=== PATIENT | female | born 1965 | race Caucasian/White ===

== ENCOUNTER 2018-08-26 07:52 | Inpatient (IN) ==
--- NOTE | 2018-07-31 12:35 | PAT Medication Instructions ---
Medication Instructions Date of Service July 31, 2018 Home Medications Calcium Citrate 50 mg PO BID cyanocobalamin (vitamin B-12) 2,500 mcg SUBLINGUAL BID food supplemt, lactose-reduced 1 ea QAM levothyroxine 50 mcg PO QAM multivitamin [Multiple Vitamins] 1 tab PO BID pantoprazole 40 mg PO UD PRN sucralfate 1 g PO ACHS PRN DO NOT take the morning of surgery Calcium Citrate 50 mg PO BID cyanocobalamin (vitamin B-12) 2,500 mcg SUBLINGUAL BID food supplemt, lactose-reduced 1 ea QAM multivitamin [Multiple Vitamins] 1 tab PO BID sucralfate 1 g PO ACHS PRN Take morning of surgery With a small sip of water, OTHERWISE NOTHING TO EAT OR DRINK AFTER MIDNIGHT: levothyroxine 50 mcg PO QAM pantoprazole 40 mg PO UD PRN (if needed) Take evening before surgery Calcium Citrate 50 mg PO BID cyanocobalamin (vitamin B-12) 2,500 mcg SUBLINGUAL BID multivitamin [Multiple Vitamins] 1 tab PO BID pantoprazole 40 mg PO UD PRN (if needed) sucralfate 1 g PO ACHS PRN (if needed) Other Notes If you have any questions please call us at [phone] or [phone] or [phone] or [phone]
--- NOTE | 2018-07-31 13:52 | Anesthesiology Consultation ---
Date of Service July 31, 2018 Assessment & Plan (1) Encounter for pre-operative examination: CHECK TEST AM DOS. Chart Review Chart Review: Acceptable Risk for Surgery and Patient seen in Pre Admission Testing Teaching & Discussion Instructed NPO after midnight before surgery, except medications with 15 cc of water. Medication instructions provided according to the PAT guidelines. History Surgery Operation Date: 08/26/18 10:40 Proposed Procedures p Left Total Hip Replacement - Bethel Dennis MD Height/Weight Height: 5 ft 2 in Weight: 134.6 kg Allergies Allergy/AdvReac Type Severity Reaction Status Date / Time adhesive tape Allergy Unknown SCRATCHY Verified 07/25/18 11:20 amoxicillin Allergy Unknown Rash Verified 07/25/18 10:56 Medications Home Medications Medication Instructions Recorded Confirmed Last Taken Calcium Citrate 50 mg PO BID 07/25/18 07/25/18 Unknown cyanocobalamin (vitamin B-12) 2,500 mcg SUBLINGUAL BID 07/25/18 07/25/18 Unknown [Vitamin B-12] food supplemt, lactose-reduced 1 ea QAM 07/25/18 07/25/18 Unknown [Protein Nutritional Shake] levothyroxine 50 mcg PO QAM 07/25/18 07/25/18 07/25/18 multivitamin [Multiple Vitamins] 1 tab PO BID 07/25/18 07/25/18 Unknown pantoprazole 40 mg PO UD PRN 07/25/18 07/25/18 Unknown sucralfate 1 g PO ACHS PRN 07/25/18 07/25/18 Unknown Past Medical History Medical History Claustrophobia Dyspepsia ON PPI Hypothyroidism Morbid obesity Restless leg syndrome Past Family History Family History Father Family history of liver cancer Other Family history of colon cancer in father Past Surgical History Surgical History History of 2 sections History of carpal tunnel release of both wrists History of colonoscopy History of esophagogastroduodenoscopy (EGD) History of gastric bypass 01/2018 History of laparoscopic cholecystectomy Nausea and vomiting after administration of anesthetic agent Past Anesthesia History No Hx of Anesthesia Complications (mild PONV) and No Family Hx of Anesthesia Complications (Mother PONV) History of PONV Yes Motion Sickness Screening History of Motion Sickness: Yes Social History Smoking Status: Never smoker Do You Dip or Chew Tobacco: No Hx Alcohol Use: No Hx Substance Use: No substance use type: does not use Exercise / Class Metabolic Activity III < 4 Walking/Shop/Light housework (Denies CP or SOB with small FOS, but limits activity 2/2 hip pain) Review of Systems Pt denies any recent chest pain, shortness of breath, palpitations, cough, fever or URI. Physical Exam Vital Signs BP: 151/80 (pt states this is unusually high for her, she is very stressed out) P: 83bpm SPO2: 96% RA T: 98.4 F R: 16 Constitutional + morbidly obese ENMT Mouth: + dental restorations (2 crowns, bottom L rear, upper R rear); no chipped teeth and no loose teeth Thyromental Distance: > or= 3.5 Finger Breadths (4) Mallampati Class: II Permanent retainer behind upper front teeth. Neck normal visual inspection; neck extension not limited Respiratory normal respiratory effort Auscultation: lungs clear to auscultation bilaterally Cardiovascular Rate/Rhythm: regular rate and regular rhythm Heart Sounds: no murmur Vessels: no carotid bruit Extremities: no edema Testing Electrocardiogram Date: 01/07/18 Findings: + NSR @ (84) Low voltage QRS, "borderline" EKG. Chest X-Ray Date: 07/31/18 Findings: + NAD Echocardiogram Date: 10/23/17 EF: 55-60% There is no prior study for comparison. Technically difficult due to body habitus and poor acoustic windows. Normal EF. No regional wall motion abnormalities of the left ventricle. Grade 1 diastolic dysfunction. Trace mitral valve regurg. Trace tricuspid valve regurg. No pericardial effusion. Stress Test Date: 11/06/17 Type: DSE Normal stress echo without evidence of infarct or ischemia. No evidence of EKG changes to suggest ischemia. Patient reported nausea during stress test. Low risk study. Laboratory Results 07/31/18 14:05 07/31/18 14:05 Blood Type A Positive 07/31/18 14:05 Antibody Screen NEGATIVE 07/31/18 14:05 PT 10.2 Seconds (9.0-12.0) 07/31/18 14:05 INR 1.0 (0.9-1.1) 07/31/18 14:05 APTT 24.3 Seconds (21.0-31.0) 07/31/18 14:05
[2018-07-31 14:31] LABS: Basophils # (auto) 0.03 K/uL (0-0.2); Basophils % (auto) 0.3 %; Eosinophils # (auto) 0.16 K/uL (0-0.5); Eosinophils % (auto) 1.5 %; Hematocrit (blood only) 41.9 % (37-47); Hemoglobin 14.3 g/dL (12.0-16.0); Immature Granulocytes # (auto) 0.02 K/uL (0.00-0.02); Immature Granulocytes % (auto) 0.2 %; Lymphocytes % (auto) 19.1 %; Mean Corpuscular Hgb Conc 34.1 g/dL (32-36); Mean Corpuscular Volume 89.5 fL (80-100); Mean Platelet Volume 10.2 fL (7.4-10.4); Monocytes % (auto) 4.6 %; Neutrophils # (auto) 8.17 K/uL (1.4-6.5); Neutrophils % (auto) 74.3 %; Platelet Count 305 K/uL (130-400); RDW Coefficient of Variation 13.9 % (11.5-14.5); RDW Standard Deviation 45.6 fL (36.4-46.3); Red Blood Count 4.68 M/uL (4.2-5.4); White Blood Count 10.98 K/uL (4.8-10.8)
--- NOTE | 2018-07-31 14:35 | XRay Report ---
XR chest Pre-admission PA/Lat HISTORY: Preop. COMPARISON: None. FINDINGS: The lungs are clear. Cardiac silhouette is normal in size. No pleural effusions. No pneumot horax. IMPRESSION: No acute process. Electronically signed by: Narciso Ornelas M.D. 07/31/2018 2:33 PM
[2018-07-31 14:37] LABS: BUN Creatinine Ratio 22.4 (10-20); Calcium 9.3 mg/dl (8.5-10.1); Est GFR (African American) 105.3; Est GFR (Non-African American) 90.8; Potassium 4.3 mmol/L (3.5-5.1)
[2018-07-31 15:02] LABS: Partial Thromboplastin Ratio 0.9; Partial Thromboplastin Time 24.3 Seconds (21.0-31.0); Prothrombin Time 10.2 Seconds (9.0-12.0)
--- NOTE | 2018-08-23 12:21 | History and Physical Report ---
DATE OF ADMISSION: 08/26/2018 CHIEF COMPLAINT: Left hip pain, discomfort. HISTORY OF PRESENT ILLNESS: The patient is a 53-year-old female who is referred by my partner, Dr. Horne for surgical treatment of her left hip. She has a 6-month history of markedly increasing left hip pain and discomfort, been unresponsive to conservative care. She has been to various medicines which have not helped much at all. She had an intraarticular hip joint injection which took her pain away quite well for about a week and that is it. She got back to her normal activity level and the pain is back to where it was. She did have gastric bypass surgery about 6 months ago and lost 90 pounds and continues to lose weight slowly. She limps the more she walks. She has groin pain. She has nighttime discomfort. She would like to have her left hip fixed. PAST MEDICAL HISTORY: Significant for: 1. Hypothyroidism. 2. Obesity with BMI of 54, status post gastric bypass surgery on 01/27/2018. PREVIOUS SURGERIES: Include: 1. Cholecystectomy. 2. x2. 3. Carpal tunnel release bilaterally. 4. Vein stripping in 2010. 5. Bariatric surgery done at [facility] on 01/27/2018. ALLERGIES: AMOXICILLIN, WHICH CAUSES A RASH. CURRENT MEDICINES: Include: 1. Pantoprazole 40 mg a day. 2. Levothyroxine 50 mcg a day. 3. Vitamin B12. 4. Calcium citrate. 5. Multivitamin. 6. Carafate. SOCIAL HISTORY: A 53-year-old female. 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 Does not smoke. No significant alcohol intake. FAMILY HISTORY: Noncontributory. REVIEW OF HISTORY: Negative for diabetes, neurologic problems, vascular problems, bleeding disorders. No chest pain or shortness of breath. No history of DVT or PE. She has had this recent 90-pound weight loss. PHYSICAL EXAMINATION: GENERAL: Reveals a pleasant, middle-aged female. Looks to be in reasonably good health. Fairly large stature. HEENT: Benign. NECK: Supple. No lymphadenopathy. LUNGS: Clear to auscultation. HEART: Regular rate and rhythm. ABDOMEN: Soft, nontender, nondistended. EXTREMITIES: Grossly neurovascularly intact except as follows. Examination of left hip and leg reveals the patient walks with a bit of limp. Leg lengths clinically appear equal. She does waddle when she walks. She has pain with any type of hip motion. She can internally rotate to neutral, which recreates her pain. Negative straight leg raise. No knee effusion. She is neurologically intact. X-RAYS: X-ray of the left hip reviewed. It shows a moderate hip arthritis. Still has little bit joint space remaining, but clearly different than the opposite side. Large soft tissue envelope. She does have an MRI done at [facility], which shows advanced left hip DJD. She has got bone marrow changes of the femoral head and has significant joint effusion. ASSESSMENT: A 53-year-old white female, obese patient, 6 months out from gastric bypass surgery with moderately advanced left hip degenerative joint disease on x-ray, but significantly more severe on MRI with bone marrow edema. She has failed conservative treatment. It is really limiting her activities. She would like to have her hip fixed. PLAN: We are going to take her to the Operating Room and do a left total hip replacement. The risks and benefits of this procedure were explained to the patient including but not limited to DVT, PE, , infection, neurological injury, vascular injury, bleeding problem, pain, limited range of motion, stiffness, failure to relieve symptoms, incomplete relief of symptoms, need for further surgery in the future, fracture, leg length inequality, nerve palsy, dislocation. The patient understands and desires to proceed. Informed consent was obtained. At her young age, I did tell her that she might need this redone or might wear out over time and she is fully aware of this. As far as discharge plans, she is planning to be discharged home with home health program.
[~2018-08-26 07:52] MED LIST: ACETAMINOPHEN 500 MG TAB PO SCH; BUPIVACAINE 0.5 % 5 MG/1 ML PF 10ML VIAL ONE; CEFAZOLIN 3000MG 65 ML IV SCH; CeleBREX 200 MG CAP PO SCH; FAMOTIDINE 20 MG TAB PO SCH; GABAPENTIN 300 MG x 3 PO SCH; LR 15ML/HR IV SCH; LR 60ML/HR IV SCH; METOCLOPRAMIDE HCL 10 MG TABLET PO SCH; SCOPOLAMINE 1.5 MG TDSY TD SCH; TRANEXAMIC ACID 1,000 MG **IV Pre-op IV SCH
--- NOTE | 2018-08-26 08:57 | History & Physical Bridge Note ---
Date of Service August 26, 2018 History & Physical Bridge Note I have examined the patient, reviewed the History & Physical and in the interval since the performance of the History & Physical I have noted the following changes of clinical significance: no changes noted
[2018-08-26] MEDS ORDERED: ACETAMINOPHEN 1,000 MG/100 ML VIAL IV STA (09:25)
[2018-08-26] MEDS ORDERED: FAMOTIDINE 20MG/5ML IV PUSH IV STA (09:26)
[2018-08-26] MEDS ORDERED: FAMOTIDINE 20 MG in SYRINGE 3 ML IV STA (09:30)
[2018-08-26] MEDS: CHECK SCOPOLAMINE PATCH PLACEMENT SCH (09:43)
[2018-08-26] MEDS ORDERED: MIDAZOLAM HCL 1 MG/ML 2ML VIAL ONE ×4 (10:31→12:11)
[2018-08-26] MEDS ORDERED: MoRPHine SULFATE PF 1 MG/ML 10 ML AMP/VIAL ONE (10:32)
[2018-08-26] MEDS ORDERED: BACITRACIN INJ 50,000 UNIT VIAL ONE (10:45)
[2018-08-26] MEDS ORDERED: BUPIVACAINE/EPINEPHRINE 0.5% MPF 1:200,000 30 ML VIAL ONE (10:45)
[2018-08-26] MEDS ORDERED: PROMETHAZINE HCL 12.5 MG in SODIUM CHLORIDE 0.9% 50 ML IV PRN (10:52)
[2018-08-26] MEDS ORDERED: DiphenhydrAMINE HCL 50 MG/ML VIAL IV PRN (10:52)
[2018-08-26] MEDS ORDERED: NALOXONE HCL 1 MG in SODIUM CHLORIDE 0.9% 1000ML 1,000 ML IV PRN (10:52)
[2018-08-26] MEDS ORDERED: LACTATED RINGER'S 500 ML IV PRN (10:52)
[2018-08-26] MEDS ORDERED: NALOXONE HCL 0.08 MG in SYRINGE 1.8 ML IV PRN (10:52)
[2018-08-26] MEDS ORDERED: ONDANSETRON INJ 2 MG/ML 2 ML VIAL IV PRN (10:52)
[2018-08-26] MEDS ORDERED: NALBUPHINE HCL INJ 10 MG/ML AMP IV PRN (10:52)
[2018-08-26] MEDS ORDERED: NALOXONE HCL 0.4 MG/1 ML VIAL/CARP IV PRN ×2 (10:52→14:21)
[2018-08-26] MEDS ORDERED: MoRPHine SULFATE PF 1 MG/ML 10 ML AMP/VIAL INT SPINAL ONE (10:52)
[2018-08-26] MEDS ORDERED: ePHEDrine sulfate 50 MG/ML AMP IV PRN (10:52)
[2018-08-26] MEDS ORDERED: MEPERIDINE HCL 25 MG/ML CARP IV PRN (10:52)
[2018-08-26] MEDS ORDERED: SODIUM CHLORIDE 0.9% 1000ML 1,000 ML IV SCH (11:00)
[2018-08-26] MEDS ORDERED: NO NARCOTICS OR SEDATIVES SCH (11:00)
[2018-08-26] MEDS ORDERED: LIDOCAINE HCL 2% 2 ML VIAL/AMP(20MG/ML) INFIL ONE (11:24)
[2018-08-26] MEDS ORDERED: ONDANSETRON INJ 2 MG/ML 2 ML VIAL ONE (11:24)
[2018-08-26] MEDS ORDERED: fentaNYL citrate 100 MCG/2 ML VIAL ONE ×2 (11:24→12:11)
[2018-08-26] MEDS ORDERED: PROPOFOL IV EMULSION 10 MG/ML 20 ML VIAL IV ONE ×3 (11:24→12:31)
[2018-08-26] MEDS ORDERED: PHENYLEPHRINE 100MCG/ML 5ML SYR ONE (12:20)
--- NOTE | 2018-08-26 12:52 | Post Operative Brief Note ---
Immediate Post Op Note v1 Date of Surgery August 26, 2018 Pre & Post Diagnosis Operation Date: 08/26/18 10:40 Pre-Op Diagnosis: Left Hip Advanced Degenerative Joint Disease Post-Op Diagnosis: Left Hip Advanced Degenerative Joint Disease Procedure Operation Date: 08/26/18 10:40 Actual Procedures p Left Total Hip Arthroplasty--Uncemented(Left) - Bethel Dennis MD Surgeon Bethel Dennis MD Non Licensed Operator Zoran, PAC Estimated Blood Loss 300 Findings Consistent with Post-Op Diagnosis Fluids 1400 cc Specimens Left Femoral Head Drains Saldivar Catheter (A 16 [place]guill[place] saldivar catheter was inserted by SMITHA Arrington, without difficulty, clear yellow urine obtained, output to be monitored by An esthesia.) Anesthesia Type Spinal MAC Complications none Disposition Accompanied Patient To Recovery: Yes Disposition: Recovery Room
--- NOTE | 2018-08-26 13:21 | XRay Report ---
XR hip 1V LT w pelvis CLINICAL HISTORY: Postop hip arthroplasty COMPARISON: 07/31/2018 DISCUSSION: There are postsurgical changes of a total left hip arthroplasty. The acetabular and femor al components appear well seated. There is no dislocation. Overlying skin silvana are evident. IMPRESSION: Postsurgical changes of a total left hip arthroplasty. Electronically signed by: Kevin Pacheco M.D. 08/26/2018 1:20 PM
--- NOTE | 2018-08-26 13:31 | Anesthesiology Progress Note ---
Date of Service August 26, 2018 Anesthesia Post Procedure Vital Signs Vital Signs: Temp Pulse Pulse Resp BP BP Pulse Ox 08/26/18 13:25 77 19 97 08/26/18 13:21 79 18 123/91 97 08/26/18 13:20 76 24 100 08/26/18 13:16 75 18 112/64 100 08/26/18 13:15 85 18 100 08/26/18 13:11 78 17 109/54 L 100 08/26/18 13:10 78 15 100 08/26/18 13:06 78 19 107/65 100 08/26/18 13:05 76 18 100 08/26/18 13:01 80 25 H 107/58 L 100 08/26/18 13:00 81 18 100 08/26/18 12:56 80 19 83/63 L 99 08/26/18 12:55 36.3 C L 81 92 H 20 83/63 L 99 08/26/18 12:54 79 19 100 08/26/18 09:02 36.9 C 92 H 20 129/82 94 Notes Mental Status: alert / awake / arousable Patient Amnestic to Procedure: Yes Nausea / Vomiting: adequately controlled Pain: adequately controlled Airway Patency, RR, SpO2: stable & adequate BP & HR: stable & adequate Hydration State: stable & adequate Neuraxial Anesthesia: was administered and sensory block is resolving Anesthetic Complications: no major complications apparent
[2018-08-26] MEDS ORDERED: BISACODYL 10 MG SUPP PR PRN (14:21)
[2018-08-26] MEDS ORDERED: ALUMINUM/MAGNESIUM SUSP 30 ML UDC PO PRN (14:21)
[2018-08-26] MEDS ORDERED: MAGNESIUM HYDROXIDE SUSP 30 ML UDC PO PRN (14:21)
[2018-08-26] MEDS ORDERED: SUCRALFATE 1 GM TAB PO PRN (14:21)
[2018-08-26] MEDS: SODIUM CHLORIDE 0.9% 1000ML 1,000 ML IV SCH ×2 (15:20→23:32)
--- NOTE | 2018-08-26 15:54 | Progress Note ---
DATE: 08/26/2018 SUBJECTIVE: A 53-year-old white female postop from a left hip replacement. She is doing well. Not having any pain yet. The function and sensation is just returning in her legs. No chest pain or shortness of breath. Not feeling dizzy or lightheaded. OBJECTIVE: VITAL SIGNS: Temperature 36.4. Vital signs stable. PHYSICAL EXAMINATION: GENERAL: Reveals a pleasant, large, middle-aged female. She is lying in bed and talking to her . She looks pretty comfortable. LUNGS: Clear to auscultation. HEART: Regular rate and rhythm. ABDOMEN: Soft, nontender, nondistended. EXTREMITIES: Grossly neurovascularly intact except as follows: Examination of the left lower extremity reveals the leg to be well aligned. Hip is located. Dressing is clean, dry and intact. Thigh is soft and supple. She is neurologically intact. She can dorsiflex and plantarflex her foot appropriately. X-RAYS: X-rays of the left hip from recovery room are reviewed. It shows left uncemented hip replacement. Components looked to be in good position. No signs of problems. ASSESSMENT: A 53-year-old obese female postoperative from a left hip replacement, doing well. Pain is controlled. Hip is located. Her nerve function is returning. Still a bit weak with dorsiflexion and plantarflexion of her foot on the left side but functioning. PLAN: 1. DVT prophylaxis including thigh-high TEDs, SCDs, and aspirin twice a day. 2. PT/OT. Weight bear as tolerated. Left total hip protocol. 3. Pain control, doing well with current pain regimen. 4. IV antibiotics x24 hours. 5. Disposition: Plan to discharge to home with some home health when adequately recovered.
[2018-08-26] MEDS ORDERED: CHECK SCOPOLAMINE PATCH PLACEMENT SCH (16:00)
[2018-08-26] MEDS: FERROUS GLUCONATE 324 MG TAB PO SCH (18:15)
[2018-08-26] MEDS: ASCORBIC ACID 500 MG TAB PO SCH (18:15)
[2018-08-26] MEDS: ACETAMINOPHEN 1,000 MG/100 ML VIAL IV SCH (18:16)
[2018-08-26] MEDS: CEFAZOLIN 2000MG 2,000 MG/15 ML SYR IV SCH (18:16)
[2018-08-26] MEDS ORDERED: TRANEXAMIC ACID 1,000 MG in 0.9 % SODIUM CHLORIDE 100 ML IV SCH (19:00)
[2018-08-26] MEDS ORDERED: MULTIVITAMIN TAB PO SCH (21:00)
[2018-08-26] MEDS ORDERED: CALCIUM CITRATE PO SCH (21:00)
[2018-08-26] MEDS: ASPIRIN 81 MG ECTAB PO SCH (21:59)
[2018-08-26] MEDS: DOCUSATE SODIUM 100 MG CAP PO SCH (21:59)
[2018-08-26] MEDS: CYANOCOBALAMIN (VITAMIN B-12) 2,500 MCG TAB.SUBL SL SCH (22:00)
[2018-08-26] MEDS: SENNA 8.6 MG TAB PO SCH (22:00)
[2018-08-26] MEDS: CALCIUM CITRATE 500 MG PO SCH (22:01)
[2018-08-26] MEDS: MULITIVITAMIN PO SCH (22:01)
[2018-08-26] MEDS: IRON PO SCH (22:02)
[2018-08-26] MEDS: VIT C PO SCH (22:02)
[2018-08-27] MEDS: CHECK SCOPOLAMINE PATCH PLACEMENT SCH
--- NOTE | 2018-08-27 01:33 | Operative Report ---
DATE OF OPERATION: 08/26/2018 SURGEON: Bethel Dennis MD CLINICAL SUPPORT ASSOCIATE: SMITHA Fox PREOPERATIVE DIAGNOSIS: Left hip degenerative joint disease. POSTOPERATIVE DIAGNOSIS: Left hip degenerative joint disease. PROCEDURE PERFORMED: Left uncemented ceramic on highly cross-linked polyethylene total hip arthroplasty. COMPLICATIONS: None. ESTIMATED BLOOD LOSS: 300 mL. FLUID REPLACEMENT: 1400 mL crystalloid fluid replacement. ANESTHESIA: Spinal. DRAINS: None. SPECIMENS: Left femoral head sent for pathology. OPERATIVE INDICATIONS: The patient is a 53-year-old female who has had about a 6+ month history of markedly increased left hip pain and discomfort. She has been through extensive conservative treatment including oral medicines as well as an intra-articular hip joint injection which provided about a week of relief. X-rays did show progressive hip arthritis despite some remaining joint space. She failed all conservative care. She is markedly debilitated by her pain. An MRI did verify significant arthritis as well as significant bone marrow edema in the femoral head. The patient elected to proceed with operative treatment. The patient is morbidly obese with a BMI of 54. She did undergo gastric bypass surgery about 6 months ago and has lost about 80 pounds. OPERATIVE FINDINGS: Operative findings revealed advanced left hip DJD. She did have complete loss of the articular cartilage on about 40% of the articular surface of the femoral head. There was not eburnation, but full thickness loss down to cancellous bone. There was a moderate sized joint effusion. She had a very large soft tissue envelope with a BMI of 54. OPERATIVE IMPLANTS: Operative implants consisted of: 1. A Biomet G7 size 50 mm acetabular shell. 2. A 6.5 cancellous acetabular screws, one at 35 mm length and one at 20 mm length. 3. An apex hole eliminator. 4. The highly cross-linked polyethylene liner with a 50 mm outer diameter and 32 mm inner diameter. 5. DePuy Corail size 10 KLA femoral stem. 6. A +5/32 mm ceramic articular ball. OPERATIVE PROCEDURE: The patient was taken to the operating room, identified and placed on the operative room table in supine position. All contact areas were appropriately padded. IV antibiotics were provided by anesthesia team. A spinal anesthetic had been implemented in the holding area. Ibanez catheter was placed in sterile fashion. The patient was then placed in the right lateral decubitus position. An axillary roll was placed. Stlberg hip positioner was used for positioning. The left hip and leg were then prepped and draped in the usual sterile fashion. A posterolateral approach to the left hip was then performed through a curvilinear incision centered over the greater trochanter. Sharp dissection was carried through the subcutaneous tissues down to the level of the IT band and gluteal fascia. The soft tissue envelope was quite thick. The IT band and gluteal fascia were then incised longitudinally in line with the skin incision. The underlying greater trochanteric bursa was excised. The piriformis and external rotators were released from the posterior aspect of the femur as a single unit. Great care was taken throughout the procedure to protect the sciatic nerve. Hip was internally rotated and dislocated. Femoral neck osteotomy cut was made with the final cut about 10 mm above the lesser trochanter. Femoral head was removed and sent for pathology. The femur was retracted anteriorly. Attention was then drawn to the acetabulum. The acetabular labrum was excised. The pulvinar fat was excised. Sequential reaming of the acetabulum was then performed beginning with a size 43 and progressing up to a 49. A Biomet G7 size 50 mm acetabular shell was then placed in about 40 degrees of lateral opening and 20 degrees of anteversion. It was fixed with two 6.5 cancellous acetabular screws. A trial liner was placed. Attention was then drawn to the femur. The proximal femur was entered with a cookie cutter followed by canal finder. I broached beginning with a size 8 and progressing up to a size a 10. We got excellent fit with the 10. Calcar reamer was used to smoothen off the calcar. I then trialed the hip and the +5 articular ball provided full stability and full extension and external rotation and flexion to 90 degrees and internal rotation to 60+ degrees. Leg lengths also seemed equal. We elected to place these implants. Of note, in order to expose the proximal femur, I did have to release a portion of the gluteal sling. All trial implants were removed. The wound was irrigated with copious amounts of pulsatile lavage solution. I did inject locally with 60 mL of 0.5% Marcaine with epinephrine. An apex hole eliminator was placed. Highly cross-linked polyethylene liner was placed. A DePuy Corail size 10 KLA femoral stem was impacted in position. A +5/36 mm ceramic articular ball was placed. Hip was located and once again found to be stable. The wound was once again irrigated. The posterior capsule and external rotators were repaired through drill holes in the posterior trochanter with #2 Ti-Cron suture. The gluteal sling was reapproximated with a #1 PDS suture in a [id number] fashion. The IT band and gluteal fascia were then closed with #1 PDS suture in running fashion. Subcutaneous tissues were then closed with 2 layers with the deep layer with #2-0 Vicryl suture in a buried interrupted fashion. The subcutaneous tissues were then closed with 2-0 Dexon suture in a buried interrupted fashion. The skin was closed with skin silvana. Leg was then cleaned, dried, and a sterile dressing of Xeroform, 4 x 4s, sterile ABD pad and foam tape was applied. The patient was then transferred to the recovery room in stable condition. The patient tolerated the procedure well with no complications. All needle and sponge counts were correct at the end of the operation. I attest to the content of the Intraoperative Record and any orders documented therein. Any exception s are noted below.
[2018-08-27] MEDS: CEFAZOLIN 2000MG 2,000 MG/15 ML SYR IV SCH (02:46)
[2018-08-27] MEDS: ACETAMINOPHEN 1,000 MG/100 ML VIAL IV SCH ×2 (02:54→09:24)
[2018-08-27] MEDS ORDERED: DC INTRASPINAL MORPHINE SCH ×2 (04:52→05:00)
[2018-08-27] MEDS ORDERED: ONDANSETRON INJ 2 MG/ML 2 ML VIAL IV PRN (04:53)
[2018-08-27] MEDS ORDERED: HYDROmorphone INJ 0.5 MG/0.5 ML SYR IV PRN (04:53)
[2018-08-27] MEDS ORDERED: OXYCODONE HCL IR 5 MG TAB (IMMEDIATE RELEASE) PO PRN (04:53)
[2018-08-27] MEDS ORDERED: METOCLOPRAMIDE HCL INJ 5 MG/ML 2 ML VIAL IV PRN (04:53)
[2018-08-27] MEDS: SODIUM CHLORIDE 0.9% 1000ML 1,000 ML IV SCH (05:27)
[2018-08-27] MEDS: LEVOTHYROXINE SODIUM 50 MCG TABLET PO SCH (05:36)
[2018-08-27] MEDS: KETOROLAC 30 MG/ML VIAL IV SCH ×4 (05:36→23:37)
[2018-08-27 07:02] LABS: Basophils # (auto) 0.01 K/uL (0-0.2); Basophils % (auto) 0.1 %; Eosinophils # (auto) 0.01 K/uL (0-0.5); Eosinophils % (auto) 0.1 %; Hematocrit (blood only) 37.4 % (37-47); Hemoglobin 12.1 g/dL (12.0-16.0); Immature Granulocytes # (auto) 0.05 K/uL (0.00-0.02); Immature Granulocytes % (auto) 0.4 %; Lymphocytes # (auto) 0.92 K/uL (1.2-3.4); Lymphocytes % (auto) 6.6 %; Mean Corpuscular Hgb Conc 32.4 g/dL (32-36); Mean Corpuscular Volume 89.7 fL (80-100); Mean Platelet Volume 9.8 fL (7.4-10.4); Monocytes # (auto) 0.73 K/uL (0.11-0.59); Monocytes % (auto) 5.3 %; Neutrophils # (auto) 12.13 K/uL (1.4-6.5); Neutrophils % (auto) 87.5 %; Platelet Count 296 K/uL (130-400); RDW Standard Deviation 46.1 fL (36.4-46.3); Red Blood Count 4.17 M/uL (4.2-5.4); White Blood Count 13.85 K/uL (4.8-10.8)
[2018-08-27 07:25] LABS: BUN Creatinine Ratio 16.7 (10-20); Calcium 8.6 mg/dl (8.5-10.1); Creatinine Clr Calc Pharmacy 105.1 ml/min; Est GFR (African American) 93.3; Est GFR (Non-African American) 80.5; Potassium 4.4 mmol/L (3.5-5.1)
[2018-08-27] MEDS: CALCIUM CITRATE 500 MG PO SCH ×2 (07:33→16:57)
[2018-08-27] MEDS: MULITIVITAMIN PO SCH ×2 (07:34→20:35)
[2018-08-27] MEDS: VIT C PO SCH (07:34)
[2018-08-27] MEDS: IRON PO SCH (07:34)
[2018-08-27] MEDS: ASCORBIC ACID 500 MG TAB PO SCH ×2 (07:35→16:57)
[2018-08-27] MEDS: FERROUS GLUCONATE 324 MG TAB PO SCH ×2 (07:35→16:57)
[2018-08-27] MEDS: MULTIVITAMIN TAB PO SCH (07:35)
[2018-08-27] MEDS: DOCUSATE SODIUM 100 MG CAP PO SCH ×2 (07:36→20:35)
[2018-08-27] MEDS: ASPIRIN 81 MG ECTAB PO SCH ×2 (07:36→20:36)
[2018-08-27] MEDS: CYANOCOBALAMIN (VITAMIN B-12) 2,500 MCG TAB.SUBL SL SCH ×2 (07:37→20:37)
[2018-08-27] MEDS: PANTOprazole 40 MG TAB PO PRN (07:53)
[2018-08-27] MEDS ORDERED: IRON PO SCH (08:00)
[2018-08-27] MEDS ORDERED: VIT C PO SCH (08:00)
[2018-08-27] MEDS: TAPENTADOL HCL ER 50 MG TABCR PO SCH ×2 (08:45→20:47)
[2018-08-27] MEDS ORDERED: [UNRECOGNIZED DRUG - OTHER] PO SCH (09:00)
[2018-08-27] MEDS ORDERED: IRON CARBONYL PO SCH (09:00)
--- NOTE | 2018-08-27 11:31 | Progress Note ---
DATE: 08/27/2018 SUBJECTIVE: A 53-year-old white female postop day 1 from a left hip replacement. She is doing well. Really not having any pain yet. No chest pain or shortness of breath. Not feeling dizzy or lightheaded. OBJECTIVE: VITAL SIGNS: Temperature 37.5. Vital signs stable. GENERAL: Physical examination shows a pleasant, middle-aged female. She is sitting up in her bedside with her legs dangling talking to the therapist. EXTREMITIES: Examination of the left hip reveals the dressing to be clean, dry and intact. Hip is located. She can dorsiflex and plantarflex her foot appropriately. She is neurologically intact. Thigh is soft and supple. LABORATORY DATA: Hemoglobin is 12.1. Hematocrit 37.4. White cell count 13.85. Electrolytes are stable. ASSESSMENT: A 53-year-old white female postop day 1 from a left hip replacement, doing pretty well. Pain is controlled. Hip is located. She is neurologically intact. PLAN: 1. DVT prophylaxis including thigh-high TEDs, SCDs, and aspirin twice a day. 2. PT/OT. She can weightbear as tolerated. Left total hip protocol. 3. Pain control, doing okay with current pain regimen. We will write her for some low-dose oxycodone if needed. Otherwise, she is going to try and manage this with Tylenol. 4. Disposition: Plan to discharge to home. She is going to do outpatient therapy, I believe depending on how she does here in the hospital.
--- NOTE | 2018-08-27 11:34 | Anesthesiology Progress Note ---
Date of Service August 27, 2018 Anesthesia Post Procedure Vital Signs Vital Signs: Temp Pulse Pulse Pulse Resp BP BP 08/27/18 08:05 37.5 C 80 20 107/69 08/27/18 05:00 18 08/27/18 04:00 16 08/27/18 03:00 18 08/27/18 02:40 37.0 C 90 16 119/77 08/27/18 02:00 16 08/27/18 01:00 16 08/27/18 00:00 16 08/26/18 23:12 37.0 C 79 16 134/71 08/26/18 23:00 16 08/26/18 20:57 18 08/26/18 19:28 18 08/26/18 19:27 36.7 C 76 18 127/75 08/26/18 19:07 16 08/26/18 18:00 16 08/26/18 17:00 74 16 134/76 08/26/18 16:11 73 16 125/77 08/26/18 16:09 16 08/26/18 15:16 76 16 109/72 08/26/18 14:43 76 16 114/72 08/26/18 14:00 36.4 C L 74 16 98/62 L 08/26/18 13:34 36.4 C L 67 22 122/57 L 08/26/18 13:25 77 19 08/26/18 13:21 79 18 123/91 08/26/18 13:20 76 24 08/26/18 13:16 75 18 112/64 08/26/18 13:15 85 18 08/26/18 13:11 78 17 109/54 L 08/26/18 13:10 78 15 08/26/18 13:06 78 19 107/65 08/26/18 13:05 76 18 08/26/18 13:01 80 25 H 107/58 L 08/26/18 13:00 81 18 08/26/18 12:56 80 19 83/63 L 08/26/18 12:55 36.3 C L 81 92 H 20 83/63 L 08/26/18 12:54 79 19 Pulse Ox 08/27/18 08:05 91 08/27/18 05:00 96 08/27/18 04:00 94 08/27/18 03:00 96 08/27/18 02:40 100 04/17/19 02:00 97 08/27/18 01:00 97 08/27/18 00:00 97 08/26/18 23:12 97 08/26/18 23:00 97 08/26/18 20:57 96 08/26/18 19:28 95 08/26/18 19:27 96 08/26/18 19:07 95 08/26/18 18:00 95 08/26/18 17:00 99 08/26/18 16:11 100 08/26/18 16:09 100 08/26/18 15:16 92 08/26/18 14:43 97 08/26/18 14:00 93 08/26/18 13:34 94 08/26/18 13:25 97 08/26/18 13:21 97 08/26/18 13:20 100 08/26/18 13:16 100 08/26/18 13:15 100 08/26/18 13:11 100 08/26/18 13:10 100 08/26/18 13:06 100 08/26/18 13:05 100 08/26/18 13:01 100 08/26/18 13:00 100 08/26/18 12:56 99 08/26/18 12:55 99 08/26/18 12:54 100 Notes Mental Status: alert / awake / arousable and participated in evaluation Patient Amnestic to Procedure: Yes Nausea / Vomiting: adequately controlled Pain: adequately controlled Airway Patency, RR, SpO2: stable & adequate Hydration State: stable & adequate Neuraxial Anesthesia: was administered and sensory block is resolving Anesthetic Complications: no major complications apparent and Pt Satisfied with anesthetic care
[2018-08-27] MEDS: SENNA 8.6 MG TAB PO SCH (20:37)
[2018-08-28] MEDS: KETOROLAC 30 MG/ML VIAL IV SCH (05:43)
[2018-08-28] MEDS: LEVOTHYROXINE SODIUM 50 MCG TABLET PO SCH (05:43)
--- NOTE | 2018-08-28 07:35 | Progress Note ---
DATE: 08/28/2018 SUBJECTIVE: A 53-year-old white female postop day 2 from a left hip replacement. She is doing pretty well. A little bit more painful and just sore today. No chest pain or shortness of breath. Not feeling dizzy or lightheaded. OBJECTIVE: VITAL SIGNS: Temperature 37.6. Vital signs stable. GENERAL: Reveals a pleasant, middle-aged female. She is sitting up on her bedside chair and looks reasonably comfortable. EXTREMITIES: Examination of left hip reveals her leg lengths were equal. Dressing is clean, dry, and intact. Thigh is large but soft. Hip is located. She is neurologically intact. ASSESSMENT: A 53-year-old white female postop day 2 from left hip replacement, doing pretty well. Pain is controlled. Hip is located. She is neurologically intact. PLAN: 1. DVT prophylaxis including thigh-high TEDs, SCDs, and aspirin twice a day. 2. PT/OT. Weight bear as tolerated. Left total hip protocol. 3. Pain control, doing well with current pain regimen. 4. Disposition: Plan to discharge to home and she is going to do outpatient therapy.
[2018-08-28 07:39] VITALS: BP 126/76; PULSE 104; TEMP 98.8; O2SAT 93
[2018-08-28] MEDS: TAPENTADOL HCL ER 50 MG TABCR PO SCH (08:23)
[2018-08-28] MEDS: DOCUSATE SODIUM 100 MG CAP PO SCH (08:23)
[2018-08-28] MEDS: MULTIVITAMIN TAB PO SCH (08:23)
[2018-08-28] MEDS: CYANOCOBALAMIN (VITAMIN B-12) 2,500 MCG TAB.SUBL SL SCH (08:23)
[2018-08-28] MEDS: ASCORBIC ACID 500 MG TAB PO SCH (08:23)
[2018-08-28] MEDS: ASPIRIN 81 MG ECTAB PO SCH (08:23)
[2018-08-28] MEDS: FERROUS GLUCONATE 324 MG TAB PO SCH (08:23)
[2018-08-28] MEDS: CALCIUM CITRATE 500 MG PO SCH (08:26)
[2018-08-28] MEDS: IRON PO SCH (08:26)
[2018-08-28] MEDS: VIT C PO SCH (08:26)
[2018-08-28] MEDS: MULITIVITAMIN PO SCH (08:26)
[2018-08-28] MEDS: PANTOprazole 40 MG TAB PO PRN (08:34)
--- NOTE | 2018-09-02 08:17 | Discharge Summary ---
ADMITTING PHYSICIAN AND SURGEON: Bethel Dennis MD ADMITTING DIAGNOSIS: Left hip degenerative joint disease. SURGERY PERFORMED: Left total hip arthroplasty. SECONDARY DIAGNOSES: Hypothyroidism, obesity. CONSULTS: None obtained. HISTORY AND PHYSICAL EXAMINATION: Well documented in patient's chart. HOSPITAL COURSE: The patient was admitted on 08/26/2018, underwent a total hip arthroplasty, tolerated the procedure well. There were no complications. She was transferred to the PACU postoperatively and later to the orthopedic floor for further care. She was given Ancef for antibiotic prophylaxis, LARISSA stockings, SCDs and aspirin for DVT prophylaxis. Hemoglobin, hematocrit and vital signs were monitored during her hospital stay and remained stable. She did not require any blood transfusions. There were no complications. By postoperative day 2, she was tolerating a regular diet, pain was controlled with oral pain medicine. She was participating in physical therapy. On postop day 2, she was discharged home. She was given printed discharge instructions including new prescriptions for aspirin and oxycodone. Continue her home medications, continue physical therapy, weightbearing as tolerated, LARISSA stockings, total hip precautions. Follow up approximately 2 weeks postop or sooner if there are any problems or concerns.
== END 2018-08-28 09:38 | disposition home or self-care (01) | DRG 470 ==
LOC: ASU 07:52 → 3E 14:05

== ENCOUNTER 2022-02-07 05:03 | Observation (INO) ==
--- NOTE | 2021-12-26 16:26 | PAT Medication Instructions ---
Medication Instructions Date of Service December 26, 2021 Home Medications Medication Instructions Recorded clindamycin HCl 300 mg capsule 300 mg PO TID #2 caps 06/08/21 food supplemt, lactose-reduced (Protein Nutritional Shake oral liquid) 1 ea PO HS levothyroxine 50 mcg capsule 50 mcg PO QAM multivitamin (Multiple Vitamins tablet) 1 tab PO QAM pantoprazole 40 mg tablet,delayed release 40 mg PO UD PRN STOMACH IRRITATION folic acid 1 mg tablet 2 mg PO QPM clindamycin HCl 300 mg capsule 300 mg PO TID hydroxychloroquine 200 mg tablet (Plaquenil) 200 mg PO BID methotrexate sodium 2.5 mg tablet 7.5 mg PO UD prednisone 5 mg tablet 5 mg PO QAM PRN RA flare ups upadacitinib 15 mg tablet,extended release 24 hr (Rinvoq) 15 mg PO QDL Continue as directed clindamycin HCl 300 mg capsule 300 mg PO TID prednisone 5 mg tablet 5 mg PO QAM PRN RA flare ups(if needed) ASK your prescriber and surgeon hydroxychloroquine 200 mg tablet (Plaquenil) 200 mg PO BID upadacitinib 15 mg tablet,extended release 24 hr (Rinvoq) 15 mg PO QDL STOP 7 days before surgery methotrexate sodium 2.5 mg tablet 7.5 mg PO UD DO NOT take the morning of surgery multivitamin (Multiple Vitamins tablet) 1 tab PO QAM Take morning of surgery With a small sip of water, OTHERWISE NOTHING TO EAT OR DRINK AFTER MIDNIGHT: levothyroxine 50 mcg capsule 50 mcg PO QAM pantoprazole 40 mg tablet,delayed release 40 mg PO UD PRN STOMACH IRRITATION(if needed) Take evening before surgery food supplement, lactose-reduced (Protein Nutritional Shake oral liquid) 1 ea PO HS folic acid 1 mg tablet 2 mg PO QPM Other Notes If you have any questions please call us at [phone] or [phone] or [phone] or [phone]
--- NOTE | 2021-12-28 11:18 | Anesthesiology Consultation ---
Date of Service December 28, 2021 Assessment & Plan (1) Encounter for pre-operative examination: Chart Review Chart Review: Acceptable Risk for Surgery and Patient seen in Pre Admission Testing -Pt is not an OPJ candidate due to BMI - Check test AM DOS Per PAT appt on 12/28/21, patient denies any recent travel or large group activities. No known Covid positive exposures or Covid related symptoms. No known Covid infection in the past 90 days. Pt is vaccinated for Covid. Will leave to surgeon's discretion if preop Covid testing needed. Educated on importance of using Covid precautions one week prior to surgery Left CORBY 08/26/18= Done under SAB at L3-4 Teaching & Discussion Pre-Anesthesia Teaching/Discussion Notes: Instructed NPO after midnight before surgery,except medications with 15 cc of water. Medication instructions provided according to the [facility] guidelines. History Surgery Operation Date: 02/07/22 07:15 Proposed Procedures p Right Total Hip Arthroplasty - Bethel Dennis MD Height/Weight Height: 5 ft 2 in Weight: 157.4 kg Allergies Allergy/AdvReac Type Severity Reaction Status Date / Time levofloxacin [From Levaquin] Allergy Severe Nausea Verified 12/28/21 11:31 adhesive tape Allergy Unknown SCRATCHY Verified 12/26/21 10:44 amoxicillin Allergy Unknown Rash Verified 12/26/21 10:44 iv tylenol Allergy Intermediate Nausea Uncoded 12/28/21 11:31 Medications Home Medications Medication Instructions Recorded Confirmed Last Taken food supplemt, lactose-reduced 1 ea PO HS 07/25/18 12/26/21 08/24/18 01:00 (Protein Nutritional Shake oral liquid) levothyroxine 50 mcg capsule 50 mcg PO QAM 07/25/18 12/26/21 08/24/18 01:00 multivitamin (Multiple Vitamins 1 tab PO QAM 07/25/18 12/26/21 08/25/18 16:00 tablet) pantoprazole 40 mg tablet,delayed 40 mg PO UD PRN STOMACH IRRITATION 07/25/18 12/26/21 Unknown release folic acid 1 mg tablet 2 mg PO QPM 02/15/21 12/26/21 Unknown hydroxychloroquine 200 mg tablet 200 mg PO DAILY 12/26/21 12/28/21 Unknown (Plaquenil) methotrexate sodium 2.5 mg tablet 7.5 mg PO UD 12/26/21 12/26/21 Unknown prednisone 5 mg tablet 5 mg PO QAM PRN RA flare ups 12/26/21 12/26/21 Unknown upadacitinib 15 mg tablet,extended 15 mg PO QDL 12/26/21 12/26/21 Unknown release 24 hr (Rinvoq) Calcium 500 See Rx Instructions .Route .COMPLEX 12/28/21 12/28/21 Unknown Vitamin D3 See Rx Instructions .Route .COMPLEX 12/28/21 12/28/21 Unknown albuterol sulfate 90 mcg/actuation 2 puff inhalation Q6H PRN Wheezing 12/28/21 12/28/21 Unknown aerosol inhaler mecobalamin (vitamin B12) 2,500 DAILY 12/28/21 Unknown mometasone 50 mcg/actuation nasal 2 spray intranasal DAILY 12/28/21 12/28/21 Unknown spray Past Medical History Medical History Claustrophobia Can tolerate oxygen mask Dyspepsia ON PPI Stable History of recent steroid use Has been taking Prednisone 5mg x 2 weeks (usually prescribed PRN for RA) Hoarseness 2 months, following with PCP. Advised to see ENT, patient declines further treatment. Hoarseness has been improving recently per patient Hypothyroidism Morbid obesity Restless leg syndrome Rheumatoid arthritis Follows with [facility] Rheumatology Exercise / Class Metabolic Activity II 4-5 Yardwork/Stairs/Walk up hill (one flight of stairs- no chest pain or SOB ) Past Family History Family History Father Family history of liver cancer Other Family history of colon cancer in father No family history of adverse response to anesthesia Past Surgical History Surgical History History of 2 sections History of carpal tunnel release of both wrists History of colonoscopy History of esophagogastroduodenoscopy (EGD) History of gastric bypass 01/2018 History of laparoscopic cholecystectomy Nausea and vomiting after administration of anesthetic agent Status post left hip replacement Past Anesthesia History No Hx of Anesthesia Complications (with exception of PONV ) and No Family Hx of Anesthesia Complications History of PONV History of PONV (improved with IV anti nausea medication and scop patch ) and Hx of Motion Sickness Social History Smoking Status: Never smoker Do You Dip or Chew Tobacco: No Hx Alcohol Use: Yes alcohol intake frequency: holidays/special occasions only Hx Substance Use: No substance use type: does not use Review of Systems Patient denies chest pain, shortness of breath, dyspnea on exertion, cough, wheezing, palpitations. No hx of seizures, stroke, PA, apnea/snoring. No hx of blood clots or blood transfusions Physical Exam Vital Signs VITALS BP 149/85 (in forearm) P 82 TEMP 98.5 SP02 98% RESP 16 Constitutional no acute distress ENMT Mouth: no TMJ clicking Thyromental Distance: > or= 3.5 Finger Breadths (3.5) Mallampati Class: III Crowns to side teeth and molars Wire to top front teeth- permanent Neck + limited neck extension Respiratory normal respiratory effort; no respiratory distress Auscultation: lungs clear to auscultation bilaterally; no wheezes Cardiovascular Rate/Rhythm: regular rate and regular rhythm Heart Sounds: no murmur Vessels: no carotid bruit Musculoskeletal Spine: no pain with cervical ROM Extremities: extremities normal to inspection Psychiatric Orientation: alert Lab Results Anesthesia Preop Results Results Anesthesia Widget: WBC 10.43 K/ul (4.8-10.8) 12/28/21 Hgb 12.9 g/dl (12.0-16.0) 12/28/21 Hct 40.8 % (34.1-44.9) 12/28/21 Plt 336 K/uL (130-400) 12/28/21 Na 140 mmol/L (136-145) 12/28/21 K 4.6 mmol/L (3.5-5.1) 12/28/21 Cl 102 mmol/L (98-107) 12/28/21 CO2 30 mmol/L (21-32) 12/28/21 BUN 18 mg/dl (6-23) 12/28/21 Creat 0.70 mg/dl (0.6-1.2) 12/28/21 Glucose Level 95 mg/dl (70-99(Fasting)) 12/28/21 PT 10.3 Seconds (9.0-12.0) 12/28/21 PTT 24.4 Seconds (21.0-31.0) 12/28/21 INR 1.0 (0.9-1.1) 12/28/21 Blood Type A Positive 12/28/21 Antibody Screen NEGATIVE 12/28/21 Testing Electrocardiogram Date: 12/28/21 Findings: + NSR @ (81bpm ) Normal EKG per cardio. Chest X-Ray Date: 12/28/21 Findings: + NAD Echocardiogram Date: 10/23/17 EF: 55-60% There is no prior study for comparison. Technically difficult due to body habitus and poor acoustic windows. Normal EF. No regional wall motion abnormalities of the left ventricle. Grade 1 diastolic dysfunction. Trace mitral valve regurg. Trace tricuspid valve regurg. No pericardial effusion. Stress Test Date: 11/06/17 Type: DSE Normal stress echo without evidence of infarct or ischemia. No evidence of EKG changes to suggest ischemia. Patient reported nausea during stress test. Low risk study. Cervical Spine Date: 12/28/21 FINDINGS: The cervical spine is visualized from C1 through the superior endplate of T1. There is mild reversal of the normal lordotic curvature. There is 1 mm of anterolisthesis of C4 on C5 and 1 mm of retrolisthesis of C5 on C6. Moderate disc space narrowing at C5-C6 and C6-C7 with anterior osteophytes. Moderate facet degenerative changes within the lower cervical spine. Prevertebral soft tissues and the C1-C2 interval are intact. The alignment remains intact throughout flexion and extension. The C2-C3 facets are fused. IMPRESSION: 1. No fractures within the cervical spine. 2. Mild reversal of the normal lordotic curvature. 3. The alignment remains intact throughout flexion and extension. 4. Moderate degenerative changes within the lower cervical spine
--- NOTE | 2022-02-03 14:39 | History and Physical Report ---
CHIEF COMPLAINT: Persistent right hip pain and discomfort. HISTORY OF PRESENT ILLNESS: The patient is a 56-year-old female well known to me from taking care of her mom as well as doing a previous left hip replacement on her back in 2019. She is morbidly obese. She had her left hip replaced back in August of 2018. She has done quite well from this. Over the past several years, she has developed increased pain and discomfort in her right hip. She says this pain is just like her other hip was preoperatively. She has been followed by my physician licensed occupational therapy assistant, Jermain, with injections, which help minimally. She did have an intraarticular injection, which seemed to help quite a bit more. She described groin pain. She has actually resorted to using a cane to some degree. It radiates down to her knee. She really wants to have her hip fixed. She is convinced this is identical to her other hip. Of note, she has a history of gastric bypass surgery in 2018 and began to take NSAIDs as a result. PAST MEDICAL HISTORY: Significant for, 1. Morbid obesity with a BMI of 54. 2. Hypothyroidism. 3. Gastroesophageal reflux disease. 4. History of rheumatoid disease. PAST SURGICAL HISTORY: Include, 1. A left hip replacement done on 08/25/2018. 2. Carpal tunnel release bilaterally. 3. . 4. Cholecystectomy. 5. Gastric bypass surgery on 01/27/2018. ALLERGIES: AMOXICILLIN AND LEVAQUIN. CURRENT MEDICATIONS: Include, 1. Albuterol. 2. Calcium. 3. Folic acid. 4. Hydroxychloroquine/Plaquenil. 5. Levothyroxine. 6. Methotrexate. 7. Nasal spray. 8. Pantoprazole. 9. Prednisone 5 mg a day. 10. Vitamin B12. 11. D3. SOCIAL HISTORY: A 56-year-old female. She is . Works for the government. Does not smoke. No alcohol intake. FAMILY HISTORY: Noncontributory. REVIEW OF SYSTEMS: Significant for morbid obesity, despite gastric bypass surgery. No chest pain or shortness of breath. No history of DVT or PE. PHYSICAL EXAMINATION: GENERAL: Shows a pleasant, obese, middle-aged female. HEENT: Benign. NECK: Supple. No lymphadenopathy. LUNGS: Clear to auscultation. HEART: Regular rate and rhythm. ABDOMEN: Soft, nontender, nondistended. EXTREMITIES: Grossly neurovascularly intact except as follows: Examination of the right hip revealed the patient walks with use of a cane. She limps on the right side. Large soft tissue envelope. Leg lengths are equal. She does have pain with hip internal rotation. IMAGING DATA: X-rays were reviewed. Showed some fairly mild hip arthritis. She does have cartilage space remaining. A large soft tissue envelope. MRI from the outside was reviewed. This is dated 10/27/2021. It does show a significant joint effusion as well as some bone marrow changes in the femoral head. No signs of AVN. ASSESSMENT: A 56-year-old female with a 1-year history of markedly increasing right hip pain and discomfort. She has been through extensive conservative treatment. It does appear to be coming from her hip and her x-rays are terrible. Her MRI suggested a hip joint effusion and some bone marrow changes. She has failed all conservative measures. She had similar symptoms on her left side and had a hip replacement and has done well from this. She would like to have her hip replaced. PLAN: We will take her to the operating room and do right a total hip replacement. The risks and benefits of this procedure were explained to the patient and include, but not limited to, DVT, PE, , infection, neurological injury, vascular injury, bleeding problem, pain, limited range of motion, stiffness, failure to relieve her symptoms, incomplete relief of symptoms, need for further surgery in the future, dislocation, fracture, etc. The patient understands and desires to proceed. Informed consent was obtained. I did talk about her increased risk with her obesity and she is fully aware of that. Her risks for thrombosis and infection are significantly increased. Will likely use Xarelto postoperatively as she cannot take aspirin due to the gastric bypass issue. Will use a wound VAC due to her large soft tissue envelope. Job ID: [id number] [facility]
[2022-02-07] MEDS ORDERED: ACETAMINOPHEN 500 MG TAB PO SCH (06:00)
[2022-02-07] MEDS ORDERED: LR 60ML/HR IV SCH (06:00)
[2022-02-07] MEDS ORDERED: Scopolamine 1 MG TDSY TD SCH (06:00)
[2022-02-07] MEDS ORDERED: TRANEXAMIC ACID 1,000 MG **IV Pre-op IV SCH (06:00)
[2022-02-07] MEDS ORDERED: LR 500ML BOLUS, THEN 15ML/HR IV SCH (06:00)
[2022-02-07] MEDS ORDERED: CeleBREX 200 MG CAP PO SCH (06:00)
[2022-02-07] MEDS ORDERED: METOCLOPRAMIDE HCL 10 MG TABLET PO SCH (06:00)
[2022-02-07] MEDS ORDERED: FAMOTIDINE 20 MG TAB PO SCH (06:00)
[2022-02-07] MEDS ORDERED: BUPIVACAINE 0.5 % 5 MG/1 ML PF 10ML VIAL ONE (06:20)
[2022-02-07] MEDS ORDERED: MoRPHine SULFATE PF 1 MG/ML 10 ML AMP/VIAL ONE (06:39)
[2022-02-07] MEDS ORDERED: PROPOFOL IV EMULSION 10 MG/ML 20 ML VIAL IV ONE ×4 (06:39→09:01)
[2022-02-07] MEDS ORDERED: MIDAZOLAM HCL 1 MG/ML 2ML VIAL ONE ×2 (06:40→08:28)
[2022-02-07] MEDS ORDERED: fentaNYL citrate 100 MCG/2 ML VIAL ONE (06:40)
[2022-02-07] MEDS ORDERED: BUPIVACAINE 0.5 % 5 MG/1 ML MPF 30ML VIAL ONE (06:54)
[2022-02-07] MEDS ORDERED: EPINEPHrine INJ 1 MG/ML AMP ONE (06:54)
--- NOTE | 2022-02-07 06:56 | History & Physical Bridge Note ---
Date of Service February 07, 2022 History & Physical Bridge Note I have examined the patient, reviewed the History & Physical and in the interval since the performance of the History & Physical I have noted the following changes of clinical significance: no changes noted
[2022-02-07] MEDS ORDERED: ONDANSETRON INJ 2 MG/ML 2 ML VIAL ONE (07:26)
[2022-02-07] MEDS ORDERED: KETAMINE 50 MG/5 ML SYRINGE ONE (07:26)
[2022-02-07] MEDS ORDERED: GLYCOPYRROLATE 0.2 MG/ML VIAL ONE (07:26)
[2022-02-07] MEDS ORDERED: ePHEDrine sulfate 50 MG/ML AMP IV PRN (08:20)
[2022-02-07] MEDS ORDERED: NALBUPHINE HCL INJ 10 MG/ML AMP IV PRN (08:20)
[2022-02-07] MEDS ORDERED: diphenhydrAMINE 50 MG/ML VIAL IV PRN (08:20)
[2022-02-07] MEDS ORDERED: NALOXONE HCL 0.4 MG/1 ML VIAL/CARP IV PRN ×2 (08:20→10:32)
[2022-02-07] MEDS ORDERED: NALOXONE HCL 0.08 MG in SYRINGE 1.8 ML IV PRN (08:20)
[2022-02-07] MEDS ORDERED: LACTATED RINGER'S 500 ML IV PRN (08:20)
[2022-02-07] MEDS ORDERED: MoRPHine SULFATE PF 1 MG/ML 10 ML AMP/VIAL INT SPINAL ONE (08:20)
[2022-02-07] MEDS ORDERED: NALOXONE HCL 1 MG in SODIUM CHLORIDE 0.9% 1000ML 1,000 ML IV PRN (08:20)
[2022-02-07] MEDS ORDERED: HYDROmorphone INJ 0.5 MG/0.5 ML SYR IV PRN (08:20)
[2022-02-07] MEDS ORDERED: DC INTRASPINAL MORPHINE SCH (08:30)
[2022-02-07] MEDS ORDERED: NO NARCOTICS OR SEDATIVES SCH (08:30)
[2022-02-07] MEDS ORDERED: SODIUM CHLORIDE 0.9% 1000ML 1,000 ML IV SCH (08:30)
--- NOTE | 2022-02-07 09:43 | Operative Report ---
PG Post Operative Report Pre & Post Diagnosis Operation Date: 02/07/22 07:15 Pre-Op Diagnosis: Right Hip Degenerative Joint Disease Post-Op Diagnosis: Right Hip Degenerative Joint Disease I identified the patient and participated in the time-out.: Yes Procedure Operation Date: 02/07/22 07:15 Actual Procedures p Right Total Hip Arthroplasty(Right) - Bethel Dennis MD Surgeon Bethel Dennis MD Coremaker Pipe Jermain Meehan PA-C Estimated Blood Loss 200 Findings Consistent with Post-Op Diagnosis Operative findings revealed a large soft tissue envelope. She did have a moderate-sized joint effusion. She did have a fall what appeared to be full- thickness cartilage loss of the superior aspect of the femoral head. Not a lot of other degenerative changes. Fluids 1000 cc Specimens Right femoral head sent for pathology Drains None Anesthesia Type Spinal MAC Complications none Disposition Accompanied Patient To Recovery: No Indications Patient is a 56-year-old female with morbid obesity who has had a 6-month history of gradual progressive increased right hip pain discomfort unresponsive conservative treatment. She been through extensive work-up. Treatment. Fairly classic hip pain with groin pain. She failed all conservative measures. A very temporary response to an intra-articular injection. X-rays show some fairly mild at best moderate hip arthritis. We did get an MRI which showed significant hip joint effusion. She does have known underlying rheumatoid disease and on medicine for this. Her symptoms were unbearable. She has it was strongly desiring surgical treatment. That she did have her left hips replaced with similar findings 3 years ago and is done well from that. Description of Procedure Operative implants consist of: 1 Biomet G7 size 40 mm acetabular shell. 2. 6.5 cancellous acetabular screws 1 of 35 mm length and 125 mm length. 3. [place] hole general house worker. 4. Highly cross-linked polyethylene liner with a 48 mm outer diameter and 32 mm inner diameter. 5. DePuy Corail size 10 KLA femoral stem. 6. +5/32 mm ceramic articular ball. The patient was taken the operating, identified, placed on the operating table supine position protectors were properly padded. IV antibiotics tried by anesthesia team. A spinal anesthetic and been implemented holding area. Ibanez catheter was placed in sterile fashion. The patient then placed in the left lateral decubitus position. Axillary roll was placed. A Stulberg hip positioner was used for positioning. We did spend quite a bit of time positioning her due to her very large soft tissue envelope. She had BMI 64. The right hip and leg were then prepped and draped in usual sterile fashion. A posterior lateral approach of the right hip was then performed through a curvilinear incision centered over the greater trochanter. Sharp dissection Through subcutaneous tissue down the IT band gluteal fascia. She had a very thick soft tissue envelope. The IT band gluteal fascia incised longitudinally in line with skin incision. I did outline greater bursa was excised. The p iriformis and external rotators and the posterior hip joint capsule were then released from the posterior aspect hip as a single layer. The hip was then internally rotated and dislocated. A femoral neck osteotomy cut was made with a Final Cut about 12 mm above the lesser trochanter. Femoral head was removed and sent for pathology. The femur was retracted anteriorly. Attention drawn the acetabulum. The acetabular labrum was excised. The pulmonary fat was excised. Sequential reaming the acetabular was then performed begin with size 43 and progressing up to 47. I did reamed a little bit with a 48 reamer and then placed a 48 mm G7 acetabular cup in about 40 degrees lateral opening and 20 degrees of anteversion. We worked very hard to get this in appropriate position. It was then fixed with two 6.5 cancellous acetabular screws. A trial liner was placed. Attention drawn the femur. The proximal femur was entered with a Cook cutter followed by canal finder. I then broached begin the size 8 and progressing up to a 10. We could not quite get the [address]. I was planning on using a slightly larger stem but I did not feel I could likely get this down. We then trialed the hip and the +5 articular ball recreated appropriate stability and soft tissue tension and leg lengths equal. I elect to place these implants. All trial implants were removed. An apex hole general house worker was placed. Highly cross-linked polyethylene liner was placed. A size 10 KLA femoral stem was impacted in position. +5/32 mm ceramic articular ball was placed. Hip was located once again found to be stable. Attention drawn toward closing. The wound was irrigated scope sounds pulsatile lavage solution. We did inject locally with 60 cc of absent Marcaine with epinephrine. Posterior capsule and external rotators were then repaired through drill holes in the posterior trochanter with #2 Tycron suture. The IT band gluteal fascia then closed #1 PDS suture running fashion the subcutaneous tissues then closed with 2 layers of the deep layer #2 Vicryl suture and subcutaneous tissue with 2-0 Dexon suture in a buried interrupted fashion. The skin was then closed with skin silvana. Leg was then cleaned and dried. A Prevena VAC dressing was applied due to her very large soft tissue envelope. The patient was then transferred to the recovery room in stable condition. Patient tolerated procedure well and there were no complications. Jermain Meehan, my physician car rental sales assistant, was present for the entire procedure. His assistance was essential and required for appropriate patient positioning, prepping and draping, surgical exposure, performing the technical details of the operation, placement the implants, closure of the wound, and placement of the sterile bandage. I attest to the content of the Intraoperative Record and any orders documented therein. Any exceptions are noted below.
--- NOTE | 2022-02-07 10:28 | XRay Report ---
XR hip 1V RT w pelvis HISTORY: 56 years-old Female IN PACU - Post Surgical right hip total joint arthroplasty COMPARISON: Hip radiographs 12/28/2021 TECHNIQUE: AP view of the pelvis with 2 views the right hip FINDINGS: Left hip total joint arthroplasty redemonstrated. Satisfactory alignment of the right hip total joint arthroplasty with lateral skin silvana, expected postoperative soft tissue swelling with deep tissue air. No acute fracture or unexpected opaque foreign body. IMPRESSION: Right hip total joint arthroplasty with expected postoperative changes. ACT 112: Negative or not required by law. The above report was generated using voice recognition software. It may contain grammatical, syntax o r spelling errors. Electronically signed by: Jorge Mratins M.D. 02/07/2022 10:26 AM
[2022-02-07] MEDS ORDERED: ALBUTEROL HFA 8 GM INHALER INH PRN (10:32)
[2022-02-07] MEDS ORDERED: ALUMINUM/MAGNESIUM SUSP 30 ML UDC PO PRN (10:32)
[2022-02-07] MEDS ORDERED: bisacodyL 10 MG SUPP PR PRN (10:32)
[2022-02-07] MEDS ORDERED: MAGNESIUM HYDROXIDE SUSP 30 ML UDC PO PRN (10:32)
[2022-02-07] MEDS ORDERED: PANTOprazole 40 MG TAB PO PRN (10:32)
[2022-02-07] MEDS ORDERED: diphenhydrAMINE Capsule 25 MG CAP PO PRN (10:32)
[2022-02-07] MEDS ORDERED: predniSONE 5 MG TAB PO PRN (10:32)
[2022-02-07] MEDS: SODIUM CHLORIDE 0.9% 1000ML 1,000 ML IV SCH ×2 (11:22→21:33)
[2022-02-07] MEDS: CALCIUM 600MG + VIT D 400 IU TAB PO SCH ×2 (13:17→17:17)
--- NOTE | 2022-02-07 13:51 | Anesthesiology Progress Note ---
Date of Service February 07, 2022 Anesthesia Post Procedure Vital Signs Vital Signs: Temp Pulse Pulse Resp BP BP Pulse Ox 02/07/22 12:25 97.3 F L 72 16 105/66 97 02/07/22 11:30 97.3 F L 80 16 108/66 99 02/07/22 10:30 02/07/22 10:56 97.5 F L 80 18 101/67 95 02/07/22 10:30 97.5 F L 83 18 116/78 95 02/07/22 10:10 97.3 F L 79 20 99/64 L 98 02/07/22 10:00 91 H 18 102/62 96 02/07/22 09:50 80 17 120/79 94 02/07/22 09:40 77 18 116/79 100 02/07/22 09:30 96.8 F L 80 13 111/73 100 02/07/22 05:42 98.4 F 93 H 20 156/91 H 96 O2 Del Method O2 Flow Rate 02/07/22 12:25 02/07/22 11:30 02/07/22 10:30 Nasal Cannula 2 02/07/22 10:56 Nasal Cannula 2 02/07/22 10:30 Nasal Cannula 2 02/07/22 10:10 Nasal Cannula 2 02/07/22 10:00 Room Air 02/07/22 09:50 Room Air 02/07/22 09:40 Oxymask 14 02/07/22 09:30 Oxymask 14 02/07/22 05:42 Room Air Pain Intensity Right Hip: Pain Intensity: 0 Transfer of Care Handoff Completed per policy Notes Mental Status: alert / awake / arousable and participated in evaluation Patient Amnestic to Procedure: Yes Nausea / Vomiting: adequately controlled Pain: adequately controlled Airway Patency, RR, SpO2: stable & adequate BP & HR: stable & adequate Hydration State: stable & adequate Neuraxial Anesthesia: was administered and sensory block is resolving Anesthetic Complications: no major complications apparent and Pt Satisfied with anesthetic care
[2022-02-07] MEDS: ACETAMINOPHEN 500 MG TAB PO SCH ×2 (14:33→19:57)
[2022-02-07] MEDS ORDERED: TRANEXAMIC ACID / 0.7% NACL 1,000 MG/100 ML BAG IV SCH (15:45)
[2022-02-07] MEDS: ceFAZolin 2000MG 2,000 MG/15 ML SYR IV SCH ×2 (15:53→23:52)
[2022-02-07] MEDS: Scopolamine CHECK PATCH PLACEMENT SCH ×2 (16:41→23:56)
[2022-02-07] MEDS: ASCORBIC ACID 500 MG TAB PO SCH (17:17)
[2022-02-07] MEDS ORDERED: [UNRECOGNIZED DRUG - OTHER] PO SCH (21:00)
[2022-02-07] MEDS: DOCUSATE SODIUM 100 MG CAP PO SCH (21:35)
[2022-02-07] MEDS: DOCUSATE SODIUM/SENNA 50/8.6MG TAB PO SCH (21:35)
[2022-02-07] MEDS: FOLIC ACID 1 MG TAB PO SCH (21:36)
[2022-02-07] MEDS: SENNA 8.6 MG TAB PO SCH (21:36)
[2022-02-07] MEDS: HYDROmorphone INJ 0.5 MG/0.5 ML SYR IV PRN (22:12)
[2022-02-07] MEDS ORDERED: Nursing to Pharmacy Communication SCH (22:45)
[2022-02-08] MEDS ORDERED: ONDANSETRON INJ 2 MG/ML 2 ML VIAL IV PRN (02:20)
[2022-02-08] MEDS ORDERED: METOCLOPRAMIDE HCL INJ 5 MG/ML 2 ML VIAL IV PRN (02:20)
[2022-02-08] MEDS: HYDROmorphone INJ 0.5 MG/0.5 ML SYR IV PRN (04:14)
[2022-02-08] MEDS: ACETAMINOPHEN 500 MG TAB PO SCH ×4 (05:19→20:21)
[2022-02-08] MEDS: LEVOTHYROXINE SODIUM 50 MCG TABLET PO SCH (06:19)
[2022-02-08] MEDS: KETOROLAC 30 MG/ML VIAL IV SCH ×4 (06:19→20:20)
[2022-02-08 07:16] LABS: Basophils # (auto) 0.03 K/uL (0-0.2); Basophils % (auto) 0.2 %; Eosinophils # (auto) 0.03 K/uL (0-0.50); Eosinophils % (auto) 0.2 %; Hematocrit (blood only) 34.4 % (34.1-44.9); Hemoglobin 11.2 g/dl (12.0-16.0); Immature Granulocytes # (auto) 0.08 K/uL (0.00-0.02); Immature Granulocytes % (auto) 0.7 %; Lymphocytes # (auto) 1.13 K/uL (1.2-3.4); Lymphocytes % (auto) 9.2 %; Mean Corpuscular Hemoglobin 29.7 pg (25.0-34.0); Mean Corpuscular Hgb Conc 32.6 g/dL (32.0-36.0); Mean Corpuscular Volume 91.2 fL (80.0-100.0); Mean Platelet Volume 9.4 fL (9.4-12.3); Monocytes # (auto) 0.99 K/uL (0.24-0.82); Neutrophils # (auto) 10.04 K/uL (1.4-6.5); Neutrophils % (auto) 81.7 %; Platelet Count 254 K/uL (130-400); RDW Coefficient of Variation 14.8 % (11.5-14.5); RDW Standard Deviation 49.5 fL (36.4-46.3); Red Blood Count 3.77 M/uL (3.93-5.22)
[2022-02-08 07:35] LABS: BUN Creatinine Ratio 16.1 (10-20); Calcium 8.5 mg/dl (8.5-10.1); Creatinine Clr Calc Pharmacy 152.1 ml/min; Est GFR (African American) 118.5 ml/min; Est GFR (Non-African American) 102.2 ml/min; Potassium 4.4 mmol/L (3.5-5.1)
[2022-02-08] MEDS: Scopolamine CHECK PATCH PLACEMENT SCH ×3 (07:57→20:20)
[2022-02-08] MEDS: FLUTICASONE PROPIONATE NA SPR 16 GM BTL SCH (07:59)
[2022-02-08] MEDS ORDERED: dexAMETHasone 10 MG in SYRINGE 0 ML IV SCH (08:00)
[2022-02-08] MEDS: oxyCODONE HCL IR 5 MG TAB (IMMEDIATE RELEASE) PO PRN ×2 (08:46→19:19)
[2022-02-08] MEDS: DOCUSATE SODIUM 100 MG CAP PO SCH ×2 (08:46→20:17)
[2022-02-08] MEDS: ASCORBIC ACID 500 MG TAB PO SCH ×2 (08:47→17:41)
[2022-02-08] MEDS: MULTIVITAMIN TAB PO SCH (08:47)
[2022-02-08] MEDS: CALCIUM 600MG + VIT D 400 IU TAB PO SCH ×3 (08:47→17:41)
[2022-02-08] MEDS: CYANOCOBALAMIN (B-12) 500 MCG TABLET PO SCH (08:48)
[2022-02-08] MEDS: DOCUSATE SODIUM/SENNA 50/8.6MG TAB PO SCH ×2 (08:48→20:17)
[2022-02-08] MEDS: HYDROXYCHLOROQUINE SULFATE 200 MG TAB PO SCH (08:49)
[2022-02-08] MEDS: RIVAROXABAN 10 MG TABLET PO SCH (08:50)
[2022-02-08] MEDS ORDERED: NON-FORMULARY MEDICATION (Multivitamin [Multiple Vitamins] Tablet) PO SCH (09:00)
--- NOTE | 2022-02-08 09:09 | Progress Notes ---
DATE OF SERVICE: 02/08/2022 SUBJECTIVE: A 56-year-old female postoperative day 1 from right hip replacement. She is doing reaso nably well. Tried to get out of bed last night, but quite a bit of difficulty and pain. Really not much pain while lying in bed. No chest pain or shortness of breath. Not feeling dizzy or lightheade d. OBJECTIVE: VITAL SIGNS: Temperature 37.1. Vital signs are stable. GENERAL: Shows an obese, middle-aged female. She is lying in bed, looks quite comfortable this morn ing. LUNGS: Clear to auscultation. HEART: Has regular rate and rhythm. ABDOMEN: Soft, nontender, nondistended. EXTREMITIES: Grossly neurovascularly intact except as follows: Examination of the right hip and leg reveals the leg lengths to be equal. Hip is located. A thigh is soft and supple. The Prevena VAC drain/dressings in place. LABORATORY DATA: Hemoglobin 11.2. Hematocrit 34.4. Electrolytes are pending. ASSESSMENT: A 56-year-old female, postoperative day 1 from a right hip replacement, doing reasonably well. Quite a bit of pain with mobilization yesterday. We will have to see how she does today. PLAN: 1. DVT prophylaxis includes thigh-high TEDs, SCDs and we will start Xarelto 24 hours postoperatively . 2. PT, OT, weightbear as tolerated. Right total hip protocol. 3. Pain control, doing okay with current pain regimen. We will see how therapy goes today. 4. Disposition: She is hoping to be discharged to home with home health, depending on how therapy g oes today. Job ID: [id number]
[2022-02-08] MEDS: FOLIC ACID 1 MG TAB PO SCH (20:17)
[2022-02-08] MEDS: SENNA 8.6 MG TAB PO SCH (20:17)
[2022-02-09] MEDS: oxyCODONE HCL IR 5 MG TAB (IMMEDIATE RELEASE) PO PRN ×2 (00:59→12:09)
[2022-02-09] MEDS: LEVOTHYROXINE SODIUM 50 MCG TABLET PO SCH (06:48)
--- NOTE | 2022-02-09 07:48 | Progress Notes ---
DATE OF SERVICE: 02/09/2022. SUBJECTIVE: A 56-year-old female postop day 2 from a right total hip replacement. She is doing much better this morning. Pain is improved. Feels like she is getting around better. No chest pain. N o shortness of breath. Not feeling dizzy or lightheaded. OBJECTIVE: VITAL SIGNS: Temperature 37.0. Vital signs are stable. PHYSICAL EXAMINATION: GENERAL: Shows a pleasant middle-aged female. Lying in bed, looks comfortable. EXTREMITIES: Examination of the right hip reveals the dressing to be clean, dry and intact. Leg is well aligned. She can dorsiflex and plantarflex her foot appropriately. She is neurologically intac t. ASSESSMENT: A 56-year-old female postop day 2 from a right hip replacement, doing well. Doing much better today. PLAN: 1. DVT prophylaxis includes thigh-high TEDs, SCDs, and Xarelto for 1 month. 2. PT, OT, weightbear as tolerated. Right total hip protocol. 3. Pain control, doing okay with current pain regimen. 4. Disposition: Plan to discharge to home with some home health later today. Job ID: [id number]
[2022-02-09] MEDS: RIVAROXABAN 10 MG TABLET PO SCH (09:21)
[2022-02-09] MEDS: MULTIVITAMIN TAB PO SCH (09:21)
[2022-02-09] MEDS: ASCORBIC ACID 500 MG TAB PO SCH (09:22)
[2022-02-09] MEDS: CALCIUM 600MG + VIT D 400 IU TAB PO SCH ×2 (09:22→11:49)
[2022-02-09] MEDS: Scopolamine CHECK PATCH PLACEMENT SCH (09:23)
[2022-02-09] MEDS: CYANOCOBALAMIN (B-12) 500 MCG TABLET PO SCH (09:23)
[2022-02-09] MEDS: DOCUSATE SODIUM/SENNA 50/8.6MG TAB PO SCH (09:23)
[2022-02-09] MEDS: FLUTICASONE PROPIONATE NA SPR 16 GM BTL SCH (09:24)
[2022-02-09] MEDS: DOCUSATE SODIUM 100 MG CAP PO SCH (09:24)
[2022-02-09] MEDS: HYDROXYCHLOROQUINE SULFATE 200 MG TAB PO SCH (09:24)
[2022-02-09] MEDS ORDERED: metHOTREXate sodium 2.5 MG TAB PO SCH (12:00)
[2022-02-09] MEDS: ACETAMINOPHEN 500 MG TAB PO SCH (12:15)
--- NOTE | 2022-02-12 09:34 | Discharge Summary ---
Date of Service February 12, 2022 Discharge Data Procedures Performed Operation Date: 02/07/22 07:15 Actual Procedures p Right Total Hip Arthroplasty(Right) - Bethel Dennis MD Hospital Course (1) S/P total right hip arthroplasty: This is a 56 year old patient admitted on 02/07/22 and underwent total hip arthroplasty. She tolerated the procedure well and there were no complications. Transferred to the PACU post op and later to the orthopedic floor for further care. She was given ancef for antibiotic prophylaxis. She was also given LARISSA stockings, SCDs, and xarelto for DVT prophylaxis. Hemoglobin, hematocrit, and vital signs were monitored during her hospital stay and remained stable. Did not require any blood transfusions. There were no complications during her hospital stay. By post op day #2 the patient was tolerating a regular diet, pain was reasonably controlled with oral pain medicine, and she was participating in physical therapy. On post op day #2 the patient was discharged home and set up with home health care. She was given printed discharge instructions including prescriptions for extra strength tylenol, xarelto, zofran, oxycodone, and senokot. Continue physical therapy, weight bearing as tolerated. Continue hip precautions. Continue LARISSA stockings. Follow up approximately 2 weeks post op or sooner if there are problems or concerns. Coding Level of Care Code None Diagnoses S/P total right hip arthroplasty Z96.641
== END 2022-02-09 15:08 | disposition home or self-care (01) ==
LOC: ASU 05:03 → 3E 05:03